=== PATIENT | female | born 1990 | race Asian ===

== ENCOUNTER 2025-09-09 11:02 | Emergency (ER) | payer OTHER ==
[2025-09-09 11:48] LABS: #Basophils 0.06 10x3/uL (0.0-0.2); #Eosinophils 0.10 10x3/uL (0.0-0.5); #Monocytes 0.72 10x3/uL (0.0-1.1); #Neutrophils 6.08 10x3/uL (1.5-8.4); %Basophils 0.6 % (0.0-2.0); %Eosinophils 1.0 % (0.0-6.0); %Lymphocytes 31.0 % (18.0-47.0); %Monocytes 7.1 % (0.0-10.0); %Neutrophils 59.9 % (40.0-75.0); Hematocrit 39.8 % (34.9-44.5); Hemoglobin 13.7 g/dL (12.0-15.5); Mean Corpuscular Hemoglobin 31.1 pg (27.0-33.0); Mean Corpuscular Volume 90.2 fL (81.6-98.3); Platelet Count 243 10x3/uL (150-450); Red Blood Cell (RBC) Count 4.41 10x6/uL (3.90-5.03); White Blood Cell (WBC) Count 10.14 10x3/uL (3.5-10.5)
[2025-09-09 12:06] LABS: Glucose, Urine (Dipstick) Normal (Negative); Leukocyte Negative (Negative); Protein, Urine (Dipstick) Negative (Neg-Trace); Specific Gravity, Urine 1.015 (1.005-1.030)
[2025-09-09 12:10] LABS: ALT (SGPT) 16 U/L (Less than 34); AST (SGOT) 32 U/L (11-34); Albumin 4.3 g/dL (3.1-4.5); Alkaline Phosphatase 43 U/L (40-110); Anion Gap 13 mmol/L (10-20); BUN (Urea Nitrogen) 14 mg/dL (7.0-18.7); Bilirubin, Total 0.5 mg/dL (0.3-1.2); Calc. Creatinine Clearance 0 mL/min (70-130); Calcium 9.2 mg/dL (7.8-10.44); Carbon Dioxide 24 mmol/L (22-29); Chloride 103 mmol/L (98-107); Globulin 3.5 g/dL (2.4-3.5); Glucose 88 mg/dL (70-105); Potassium 3.8 mmol/L (3.5-5.1); Sodium 136 mmol/L (136-145)
[2025-09-09 12:27] LABS: CAUTI Indications for Culture Pregnancy; WBC/HPF 0-3 HPF (0-3)
[2025-09-09 12:28] LABS: Mucous/LPF 1+ LPF (<2+); Urine Culture Reflex Yes Yes
== END 2025-09-09 14:45 | disposition home or self-care (01) ==
LOC: CSHERS 11:02
DX: O03.4 Incomplete spontaneous abortion without complication (principal); Z3A.01 Less than 8 weeks gestation of pregnancy
CPT/HCPCS: 36415; 76856; 80053; 81001; 84702; 85025; 86900; 86901; 87077; 87086